=== PATIENT | female | born 1950 | race Caucasian/White ===

== ENCOUNTER 2018-09-29 00:13 | Outpatient (CLI) | payer MEDICARE, SELFPAY ==
--- NOTE | 2018-09-29 15:07 | DI.CT_ITS ---
SYMPTOMS/DIAGNOSIS: F/U RUL NODULE, R91.1 CT SCAN OF THE CHEST: Noncontrast CT scan of the chest was performed. Comparison examination is . Comparison chest x-ray is 05/13/09 and 11/07/09. The thoracic aorta is of normal caliber. The heart size is within normal limits. No significant pericardial effusion is seen. No pleural effusion or pneumothorax is identified. No significant mediastinal, hilar or axillary adenopathy is seen on this noncontrast examination. There is again seen a 1.7 x 1.4 cm noncalcified soft tissue mass in the mediastinal aspect of the right upper lobe. This is unchanged compared to examination from 01/31/18. Chest x-ray dated 2008 shows the soft tissue nodule which corresponds to the CT mass. The lungs are otherwise clear. The tracheobronchial tree is unremarkable. There are again seen bilateral breast implants. IMPRESSION: Stable right upper lobe pulmonary nodule.
== END 2018-09-29 00:33 ==
PROVIDERS: PCP Family Medicine; Visit Provider Internal Medicine
DX: R91.1 Solitary pulmonary nodule (principal)
CPT/HCPCS: 71250

== ENCOUNTER 2019-04-08 02:20 | Outpatient (CLI) | payer MEDICARE, SELFPAY ==
[2019-04-08 10:59] LABS: HCT 41.4 % (36.0-46.0); HGB 13.6 g/dL (12.0-15.5); Mean Corp. HGB Concentration 32.9 g/dL (32.0-36.0); Mean Corpuscular Hemoglobin 29.1 pg (27.0-33.0); Mean Corpuscular Volume 88.7 fL (80-95); Platelet Count 253 x1000/uL (130-400); RBC 4.67 m/cumm (4.00-5.20); White Blood Cell Count 5.84 k/cumm (4.4-10.8)
[2019-04-08 11:07] LABS: ALT 41 U/L (12-78); AST 20 U/L (15-37); Albumin 4.1 g/dL (3.4-5.0); Alkaline Phosphatase 72 U/L (46-116); Anion Gap 9.7 mmol/L (3-11); BUN 17 mg/dL (7-18); Bilirubin, Total 0.4 mg/dL (0.2-1.0); CO2 28.3 mmol/L (21.0-32.0); CREATININE 0.71 mg/dL (0.55-1.02); Calcium 9.4 mg/dL (8.5-10.1); Chloride 103 mmol/L (98-107); Glucose 86 mg/dL (70-100); Potassium 4.3 mmol/L (3.5-5.1); Sodium 141 mmol/L (136-145); Total Protein 7.4 g/dL (6.4-8.2)
== END 2019-04-08 02:40 ==
PROVIDERS: PCP Family Medicine; Visit Provider Family Medicine
DX: Z01.818 Encounter for other preprocedural examination (principal); Z98.82 Breast implant status
CPT/HCPCS: 36415; 80053; 85027